=== PATIENT | female | born 1950 | race Caucasian/White ===

== ENCOUNTER → 2017-12-23 | Outpatient (CLI) | payer OTHER ==
[~2017-12-23] MED LIST: ACCUNEB SO1.25 MG/1; ACID CONTROL20 MG PO; ALDACTAZIDE 251 EAC1 PO; ALDACTONE25 MG PO; AMBIEN 5 MG TABL5 M1 PO; AZITHROMYCIN 2250 MG PO; BACTRIM DS TAB1 EACH PO; BISACODYL SUPP10 MG PO; BISACODYL SUPP10 MG RE; CELEBREX 200 M200 M1 PO; CELEXA40 MG PO; CHERATUSSIN AC118 ML PO; COUMADIN 1MG TAB1 M1; COUMADIN 2 MG TA2 M1 PO; COUMADIN 5 MG TA5 M1 PO; COUMADIN7.5 MG PO; DEPAKOTE ER500 MG PO; DOXYCYCLINE 10100 M2 PO; DUONEB 2.5-0.5 M3 ML INH; ENOXAPARIN100 MG/11 SUBQ; FLEXERIL PO; FUROSEMIDE 20 M20 M1 PO; HYDROCHLOROTHIA25 M1 PO; HYDROCODON-ACE1 EAC7 PO; HYOSCYAMINE0.125 MG PO; KETOCONAZOLE60 GM TOP; LIDODERM 5%1 PATC1 TOP; LISINOPRIL10 MG PO; LISINOPRIL20 MG PO; LISINOPRIL40 MG PO; MOM PO; MYLANTA 12 OZ355 M1; NAPROSYN500 MG PO; NEURONTIN 300300 M1 PO; NORCO 5-325 TA1 EACH PO; NORVASC10 MG PO; OXYCODONE HCL 55 MG PO; OXYCODONE HCL15 MG PO; OXYIR 5 MG CAPSU5 M1 PO; PERCOCET 5-3251 EACH PO; PRAVACHOL40 MG PO; PRILOSEC20 MG PO; ROXICODONE15 M1 PO; ROXICODONE5 M1 PO; TUSSIONEX PENN473 ML PO; VIBRAMYCIN 100100 M2 PO; XANAX 0.5 MG0.5 M1 PO; XANAX 0.5 MG0.5 MG PO; ZOCOR40 MG PO; ZOFRAN4 MG PO; oxycontin PO
== END ==
LOC: M.MRI 06:56
DX: M48.061 Spinal stenosis, lumbar region without neurogenic claudication (principal); M51.26 Other intervertebral disc displacement, lumbar region; I10 Essential (primary) hypertension; E78.00 Pure hypercholesterolemia, unspecified; Z88.0 Allergy status to penicillin

== ENCOUNTER → 2018-01-24 | Outpatient (CLI) | payer OTHER | LOC: M.RAD 12:30 | DX: M47.816 Spondylosis without myelopathy or radiculopathy, lumbar region (principal) ==

== ENCOUNTER 2018-10-24 14:16 | Emergency (ER) | payer OTHER ==
[~2018-10-24] VITALS: Ht 167.6 cm; Wt 90.7 kg
[~2018-10-24 14:16] MED LIST changes: +CARAFATE1 GM/10 ML PO; +CRESTOR20 MG PO; +DILAUDID 4 MG TA4 M1 PO; +DILAUDID4 MG PO; +ENOXAPARIN120 MG/0.1 SUBQ; +ENOXAPARIN80 MG/0.1 SUBQ; +MOVANTIK25 MG PO; +MULTIVITAMINS PO; +OMEPRAZOLE 20 M20 M1 PO; +ZOFRAN ODT4 MG PO
[2018-10-24 14:37] LABS: ABSOLUTE BASOPHILS 0.1 thou/uL (0.0-0.2); ABSOLUTE EOSINOPHILS 0.1 thou/uL (0.0-0.7); ABSOLUTE LYMPHOCYTES 1.2 thou/uL (0.8-5.3); ABSOLUTE MONOCYTES 0.6 thou/uL (0.0-1.2); EOSINOPHILS 2.4 %; HEMATOCRIT 40.7 % (37.0-47.0); HEMOGLOBIN 13.2 gm/dL (12.0-15.0); MCH 27.2 pg (26.0-34.0); MCHC 32.3 g/dL (28.0-37.0); MONOCYTES 11.9 %; MPV 9.2 fl. (7.2-11.1); NUCLEATED RBCS 0 /100WBC; PLATELET COUNT* 249 thou/uL (150-400); POLYS 60.7 %; RBC 4.85 mil/uL (4.20-5.00); RDW-CV 13.8 % (10.5-14.5)
[2018-10-24 14:50] LABS: APTT 29.4 Seconds (25.0-31.3); INR 1.2; PROTIME 12.7 Seconds (9.20-11.50)
[2018-10-24 14:52] LABS: ANION GAP 5 mmol/L (7-16); BUN 13 mg/dL (7-18); CALCIUM 9.2 mg/dL (8.5-10.1); CHLORIDE 106 mmol/L (98-107); CO2 32 mmol/L (21-32); CREATININE 0.8 mg/dL (0.6-1.3); GLUCOSE 123 mg/dL (70-99); POTASSIUM 3.5 mmol/L (3.5-5.1); SODIUM 143 mmol/L (136-145)
[2018-10-24 15:09] LABS: ALBUMIN 3.2 g/dL (3.4-5.0); ALKALINE PHOSPHATASE 97 U/L (46-116); LIPASE 30 U/L (73-393); MAGNESIUM 1.4 mg/dL (1.8-2.4); NT-PRO BRAIN NAT PEPTIDE 1153 pg/mL (<300); SGOT 20 U/L (15-37); SGPT 21 U/L (30-65); TOTAL BILIRUBIN 0.5 mg/dL (<0.1-1.0); TOTAL PROTEIN 6.4 g/dL (6.4-8.2); TROPONIN-I LEVEL <0.06 ng/mL (<0.06)
[2018-10-24 16:43] VITALS: BP 175/76
--- NOTE | 2018-10-25 11:20 | EKG ---
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[employer]: [facility] : 1950 Requested By: Tomás Stephens Order Number: [id number] MD: Jeramy Navas Measurements Intervals [place] Rate: 72 P: 25 MT: 137 QRS: 24 QRSD: 89 T: 41 QT: 363 QTc: 398 Interpretive Statements Sinus rhythm Multiple premature complexes, vent & supraven Low voltage, precordial leads Probable septal infarct, old Compared to ECG 05/10/2018 19:43:40 Low QRS voltage now present Electronically Signed On 10-25-2018 11:19:48 CDT by Jeramy Navas [email or web address] <ELECTRONICALLY SIGNED> By: Jeramy Navas MD, [facility] 10/25/18 1119 1421 1421 Jeramy Navas MD, [facility] /EPI
== END 2018-10-24 16:44 | disposition home or self-care (01) ==
LOC: M.ERS 14:16
PROVIDERS: Family Medicine
DX: R07.89 Other chest pain (principal); I10 Essential (primary) hypertension; G89.29 Other chronic pain; M54.9 Dorsalgia, unspecified; E78.5 Hyperlipidemia, unspecified; K21.9 Gastro-esophageal reflux disease without esophagitis; Z88.2 Allergy status to sulfonamides; Z88.0 Allergy status to penicillin; Z91.041 Radiographic dye allergy status; Z88.8 Allergy status to other drugs, medicaments and biological substances; Z90.710 Acquired absence of both cervix and uterus; Z96.652 Presence of left artificial knee joint; Z90.49 Acquired absence of other specified parts of digestive tract; Z87.442 Personal history of urinary calculi; Z86.718 Personal history of other venous thrombosis and embolism